=== PATIENT | male | born 1980 | race Asian ===

== ENCOUNTER 2018-02-25 08:08 | Emergency (ER) | payer OTHER ==
[2018-02-25] MEDS: IBUPROFEN 600 MG TAB PO (09:03)
== END 2018-02-25 09:29 | disposition home or self-care (01) ==
LOC: FTE 08:08
DX: S09.90XA Unspecified injury of head, initial encounter (principal); R40.2412 Glasgow coma scale score 13-15, at arrival to emergency department; I10 Essential (primary) hypertension; Y04.8XXA Assault by other bodily force, initial encounter; Y92.89 Other specified places as the place of occurrence of the external cause
CPT/HCPCS: 99282; Z7502